=== PATIENT | male | born 1930 | race Caucasian/White ===

== ENCOUNTER → 2018-02-17 | Day surgery (SDC) | payer OTHER ==
[2017-12-29 07:59] VITALS: Ht 157.5 cm; Wt 50.9 kg
[~2018-02-17] VITALS: Ht 157.5 cm; Wt 50.9 kg
[~2018-02-17] MED LIST: ATOR-24 PO; ATROPINE SULFATE 0.1 MG/ML 5ML SYR IV PRN; CYCLOPENTOLATE HCL 1% OP SOLN PER DROP CHARGE OPL SCH; EpHEDrine SULFATE INJ 50 MG/ML AMP IV PRN; EpINEphrine INJ 1MG/ML AMP 1 MG/ML AMP ONE; FENTANYL CITRATE INJ 50 MCG/1 ML 2 ML VIAL IV PRN; FERR1TAB13 PO; GATIFLOXACIN OP SOLN PER DROP CHARGE OPL SCH; GLIP2.5T11 PO; HYDR12.524 PO; KETOROLAC 0.5% OP SOLN PER DROP CHARGE OPL SCH; LACTATED RINGER'S 1000ML 500 ML IV SCH; LIDOCAINE 3.5% OPH GEL PER APPLICATION CHARGE ONE; LIDOCAINE HCL 1% MPF 2 ML VIAL ONE; OMEP40CA41 PO; ONDANSETRON INJ 2 MG/ML 2 ML VIAL IV PRN; PHENYLEPHRINE HCL 10% OP SOLN PER DROP CHARGE OPL SCH; PHENYLEPHRINE HCL 2.5% OP SOLN PER DROP CHARGE OPL SCH; POVIDONE-IODINE OP SOLN 30 ML BTL ONE; PROPARACAINE 0.5% OP SOLN PER DROP CHARGE OPL SCH; SODIUM CHLORIDE 0.9% 500ML IV SCH; TAMS0.4C38 PO; TOBRAMYCIN/DEXAMETHASONE OPH OINT PER APPLN CHARGE ONE; TROPICAMIDE 1% OP SOLN PER DROP CHARGE OPL SCH
[2018-02-17 10:06] VITALS: BP 163/69; PULSE 64; TEMP 36.9; O2SAT 95
== END | disposition home or self-care (01) ==
LOC: X.SURG 08:03
PROVIDERS: ATTEND Ophthalmology
DX: H26.9 Unspecified cataract (principal); I12.9 Hypertensive chronic kidney disease with stage 1 through stage 4 chronic kidney disease, or unspecified chronic kidney disease; K57.30 Diverticulosis of large intestine without perforation or abscess without bleeding; F70 Mild intellectual disabilities; K21.9 Gastro-esophageal reflux disease without esophagitis; N18.3 Chronic kidney disease, stage 3 (moderate); E11.22 Type 2 diabetes mellitus with diabetic chronic kidney disease; Z85.46 Personal history of malignant neoplasm of prostate; Z79.84 Long term (current) use of oral hypoglycemic drugs; Z79.899 Other long term (current) drug therapy; Z53.09 Procedure and treatment not carried out because of other contraindication

== ENCOUNTER → 2018-03-03 | Day surgery (SDC) | payer OTHER ==
[2018-02-19 10:30] VITALS: Ht 157.5 cm; Wt 50.9 kg
[~2018-03-03] VITALS: Ht 157.5 cm; Wt 50.9 kg
[~2018-03-03] MED LIST changes: +500ML BSS 0.3ML EPI 1:1000PF IRRIG ONE; +ACETAMINOPHEN 325 MG TAB PO PRN; +AMVISC PLUS 0.8ML SYRINGE INT OCU ONE; +BSS FLUSH ONE; -CYCLOPENTOLATE HCL 1% OP SOLN PER DROP CHARGE OPL SCH; -FENTANYL CITRATE INJ 50 MCG/1 ML 2 ML VIAL IV PRN; -GATIFLOXACIN OP SOLN PER DROP CHARGE OPL SCH; -KETOROLAC 0.5% OP SOLN PER DROP CHARGE OPL SCH; +MIDAZOLAM HCL 1 MG/ML 2ML VIAL ONE; +OCUCOAT 1 ML SOLN IO ONE; -ONDANSETRON INJ 2 MG/ML 2 ML VIAL IV PRN; -PHENYLEPHRINE HCL 2.5% OP SOLN PER DROP CHARGE OPL SCH; -SODIUM CHLORIDE 0.9% 500ML IV SCH; -TROPICAMIDE 1% OP SOLN PER DROP CHARGE OPL SCH
[2018-03-03] MEDS: PHENYLEPHRINE HCL 2.5% OP SOLN PER DROP CHARGE OPL SCH ×2 (13:09→13:18)
[2018-03-03] MEDS: TROPICAMIDE 1% OP SOLN PER DROP CHARGE OPL SCH ×2 (13:12→13:19)
[2018-03-03] MEDS: CYCLOPENTOLATE HCL 1% OP SOLN PER DROP CHARGE OPL SCH ×2 (13:13→13:20)
[2018-03-03] MEDS: KETOROLAC 0.5% OP SOLN PER DROP CHARGE OPL SCH ×2 (13:15→13:21)
[2018-03-03] MEDS: GATIFLOXACIN OP SOLN PER DROP CHARGE OPL SCH ×2 (13:17→13:22)
--- NOTE | 2018-03-03 13:35 | History & Physical Bridge - [place] ---
H&P Re-Evaluation Bridge Note: I have examined the patient, reviewed the History & Physical and in the interval since the performance of the History & Physical I have noted the following changes of clinical significance: Diagnosis: Left Cataract Procedure: Left Cataract Removal with Lens Implant No changes noted
--- NOTE | 2018-03-03 14:10 | [facility] Operative Report ---
Operative Report Date of Service Mar 03, 2018. Operative Report 1. PREOPERATIVE DIAGNOSIS: Cataract of the left eye. 2. POSTOPERATIVE DIAGNOSIS: Same. 3. PROCEDURE: Phacoemulsification with intraocular lens implantation of the left eye. SURGEON: Dr. Ted Delgado. ANESTHESIA: Topical Lidocaine gel, 1% Non- Preserved intracameral Lidocaine, and monitored intravenous sedation. INDICATIONS FOR THE PROCEDURE: The patient is a 87 - year-old male with a history of cataract of the left eye causing significant visual impairment. The details of the proposed procedure were explained to the patient who asked appropriate questions and following discussion of all risks, benefits and alternatives agreed to have the procedure done. The patient had a know history of taking of flomax and therefore plans were made preoperatively to use a pupil stabilization device. 4. OPERATION AND FINDINGS: DESCRIPTION OF PROCEDURE: After informed consent was obtained, the patient was brought to the Operating Room at the [facility]. The patient was placed in a supine position and then the left eye was prepped and draped in the usual sterile fashion for intraocular surgery. A drop of topical Lidocaine gel was placed in the operative eye. A wire lid speculum was then placed in the fornices. A corneal paracentesis was then created temporally. The Non-Preserved Lidocaine was then instilled into the anterior chamber. The anterior chamber was then pressurized with viscoelastic. A malyugin ring was inserted to dilate and stabilize the pupil. A 2.0 mm clear corneal incision was then created temporally. A cystotome was inserted into the anterior chamber and used to create a tear in the anterior lens capsule. This capsular tear was then used to create a small flap and the flap was dragged in a counterclockwise direction in order to create a continuous curvilinear capsulorrhexis. Hydrodissection was accomplished with balanced salt solution. Phacoemulsification of the lens nucleus was then performed in a standard divide- and-conquer technique. The phaco time was 20 seconds with an average power of 9 %. The remaining cortical material was removed using irrigation aspiration. The capsular bag was then filled with viscoelastic. A B[employer]ch [employer] Lomb MI60L + 22.5 diopters lens was then loaded into the injector and injected into the capsular bag. The malyugin ring was removed. The remaining viscoelastic was removed with the irrigation aspiration handpiece. The wound was hydrated and then checked and found to be watertight. The intraocular pressure was checked and found to be adequate. The wire lid speculum was removed and the patient's face was cleaned and dried. TobraDex ointment was placed in the inferior fornix. The patient was discharged to the Recovery Room having tolerated the procedure well. There were no complications. The patient will be seen tomorrow in the office for follow-up. I attest to the content of the Intraoperative Record and any orders documented therein. Any exceptions are noted below.
--- NOTE | 2018-03-03 14:11 | Discharge Instructions-SurgCtr ---
Discharge Instructions Date of Service Mar 03, 2018. Visit Reason for Visit: Cataract Left Eye Discharge Discharge Diagnosis / Problem: cataract Discharge Goals Goal(s): Improve function Activity Recommendations Activity Limitations: per Instructions/Follow-up section Anesthesia . Post Anesthesia Instructions: If you have had General Anesthesia or IV Sedation: * Do not drive today. * Resume driving when surgeon permits. * Do not make important decisions or sign legal documents today. * Call surgeon for: 1. Temperature elevations greater than 101 degrees F. 2. Uncontrollable pain. 3. Excessive bleeding. 4. Persistent nausea and vomiting. 5. Medication intolerance (nausea, vomiting or rash). * For nausea and vomiting use only clear liquids such as: tea, soda, bouillon until nausea subsides, then gradually increase diet as tolerated. * If you have any concerns or questions, call your surgeon's office. If physician is unavailable and it is an emergency, call 911 or go to the nearest emergency room. . Diet Recommendations Home Diet: resume previous diet Procedures Procedures Performed: Left Cataract Phacoemulsification With Intraocular Lens Implant Pending Studies Studies pending at discharge: no Medical Emergencies . Who to Call and When: Medical Emergencies: If at any time you feel your situation is an emergency, please call 911 immediately. . Non-Emergent Contact Non-Emergency issues call your: Screening Representative . . "Provider Documentation" section prepared by Ted Delgado. .
[2018-03-03 14:12] VITALS: TEMP 36.8
--- NOTE | 2018-03-03 14:22 | Anesthesia Progress Nt - [facility] ---
Anesthesia Post Op Note Date & Time Mar 03, 2018 at 14:21 Vital Signs Pain Intensity: 0 Vital Signs Past 12 Hours Date Time Temp Pulse Resp B/P (MAP) Pulse Ox O2 Delivery O2 Flow Rate FiO2 03/03/18 14:12 36.8 65 16 170/75 (106) 95 Room Air 03/03/18 12:58 36.5 67 20 170/75 (106) 96 Room Air Notes Mental Status: alert / awake / arousable, participated in evaluation Pt Amnestic to Procedure: Yes Nausea / Vomiting: adequately controlled Pain: adequately controlled Airway Patency, RR, SpO2: stable & adequate BP & HR: stable & adequate Hydration State: stable & adequate Anesthetic Complications: no major complications apparent
[2018-03-03 14:40] VITALS: BP 173/72; PULSE 62; O2SAT 98
== END | disposition home or self-care (01) ==
LOC: X.SURG 11:59
PROVIDERS: ATTEND Ophthalmology
DX: H26.8 Other specified cataract (principal); E11.22 Type 2 diabetes mellitus with diabetic chronic kidney disease; I12.9 Hypertensive chronic kidney disease with stage 1 through stage 4 chronic kidney disease, or unspecified chronic kidney disease; K21.9 Gastro-esophageal reflux disease without esophagitis; F70 Mild intellectual disabilities; F17.221 Nicotine dependence, chewing tobacco, in remission; N18.3 Chronic kidney disease, stage 3 (moderate); Z79.4 Long term (current) use of insulin; Z79.899 Other long term (current) drug therapy; Z80.0 Family history of malignant neoplasm of digestive organs; Z85.46 Personal history of malignant neoplasm of prostate; Z82.49 Family history of ischemic heart disease and other diseases of the circulatory system; Z83.2 Family history of diseases of the blood and blood-forming organs and certain disorders involving the immune mechanism

== ENCOUNTER → 2018-03-31 | Day surgery (SDC) | payer OTHER ==
[2018-03-18 13:16] VITALS: Ht 157.5 cm; Wt 50.9 kg
[~2018-03-31] VITALS: Ht 157.5 cm; Wt 50.9 kg
[~2018-03-31] MED LIST changes: -PHENYLEPHRINE HCL 10% OP SOLN PER DROP CHARGE OPL SCH; +PHENYLEPHRINE HCL 10% OP SOLN PER DROP CHARGE OPR SCH; -PROPARACAINE 0.5% OP SOLN PER DROP CHARGE OPL SCH; +PROPARACAINE 0.5% OP SOLN PER DROP CHARGE OPR SCH
[2018-03-31] MEDS: PHENYLEPHRINE HCL 2.5% OP SOLN PER DROP CHARGE OPR SCH ×2 (08:19→08:26)
[2018-03-31] MEDS: TROPICAMIDE 1% OP SOLN PER DROP CHARGE OPR SCH ×2 (08:20→08:27)
[2018-03-31] MEDS: CYCLOPENTOLATE HCL 1% OP SOLN PER DROP CHARGE OPR SCH ×2 (08:21→08:28)
[2018-03-31] MEDS: KETOROLAC 0.5% OP SOLN PER DROP CHARGE OPR SCH ×2 (08:22→08:29)
[2018-03-31] MEDS: GATIFLOXACIN OP SOLN PER DROP CHARGE OPR SCH ×2 (08:23→08:33)
--- NOTE | 2018-03-31 08:42 | History & Physical Bridge - [place] ---
H&P Re-Evaluation Bridge Note: I have examined the patient, reviewed the History & Physical and in the interval since the performance of the History & Physical I have noted the following changes of clinical significance: No changes noted
--- NOTE | 2018-03-31 09:37 | [facility] Operative Report ---
Operative Report Date of Service March 31, 2018. Operative Report 1. PREOPERATIVE DIAGNOSIS: Cataract of the right eye. 2. POSTOPERATIVE DIAGNOSIS: Same. 3. PROCEDURE: Phacoemulsification with intraocular lens implantation of the right eye. SURGEON: Dr. Ted Delgado. ANESTHESIA: Topical Lidocaine gel, 1% Non- Preserved intracameral Lidocaine, and monitored intravenous sedation. INDICATIONS FOR THE PROCEDURE: The patient is a 87 - year-old male with a history of cataract of the right eye causing significant visual impairment. The details of the proposed procedure were explained to the patient who asked appropriate questions and following discussion of all risks, benefits and alternatives agreed to have the procedure done. The patient dilated poorly and therefore plans were made preoperatively to use a pupil dilating device. 4. OPERATION AND FINDINGS: DESCRIPTION OF PROCEDURE: After informed consent was obtained, the patient was brought to the Operating Room at the [facility]. The patient was placed in a supine position and then the right eye was prepped and draped in the usual sterile fashion for intraocular surgery. A drop of topical Lidocaine gel was placed in the operative eye. A wire lid speculum was then placed in the fornices. A corneal paracentesis was then created temporally. The Non-Preserved Lidocaine was then instilled into the anterior chamber. The anterior chamber was then pressurized with viscoelastic. A 2.0 mm clear corneal incision was then created temporally. A malyugin ring was inserted to dilate and stabilize the pupil. A cystotome was inserted into the anterior chamber and used to create a tear in the anterior lens capsule. This capsular tear was then used to create a small flap and the flap was dragged in a counterclockwise direction in order to create a continuous curvilinear capsulorrhexis. Hydrodissection was accomplished with balanced salt solution. Phacoemulsification of the lens nucleus was then performed in a standard divide- and-conquer technique. The phaco time was 26 seconds with an average power of 13 %. The remaining cortical material was removed using irrigation aspiration. The capsular bag was then filled with viscoelastic. A Bausch [employer] Lomb MI60L + 21.0 diopters lens was then loaded into the injector and injected into the capsular bag. The remaining viscoelastic was removed with the irrigation aspiration handpiece. The wound was hydrated and then checked and found to be watertight. The intraocular pressure was checked and found to be adequate. The wire lid speculum was removed and the patient's face was cleaned and dried. TobraDex ointment was placed in the inferior fornix. The patient was discharged to the Recovery Room having tolerated the procedure well. There were no complications. The patient will be seen tomorrow in the office for follow-up. I attest to the content of the Intraoperative Record and any orders documented therein. Any exceptions are noted below.
--- NOTE | 2018-03-31 09:38 | Discharge Instructions-SurgCtr ---
Discharge Instructions Date of Service March 31, 2018. Visit Reason for Visit: Cataract Right Eye Discharge Discharge Diagnosis / Problem: cataract Discharge Goals Goal(s): Improve function Activity Recommendations Activity Limitations: per Instructions/Follow-up section Anesthesia . Post Anesthesia Instructions: If you have had General Anesthesia or IV Sedation: * Do not drive today. * Resume driving when surgeon permits. * Do not make important decisions or sign legal documents today. * Call surgeon for: 1. Temperature elevations greater than 101 degrees F. 2. Uncontrollable pain. 3. Excessive bleeding. 4. Persistent nausea and vomiting. 5. Medication intolerance (nausea, vomiting or rash). * For nausea and vomiting use only clear liquids such as: tea, soda, bouillon until nausea subsides, then gradually increase diet as tolerated. * If you have any concerns or questions, call your surgeon's office. If physician is unavailable and it is an emergency, call 911 or go to the nearest emergency room. . Diet Recommendations Home Diet: resume previous diet Procedures Procedures Performed: Right Cataract Phacoemulsification With Intraocular Lens Implant Pending Studies Studies pending at discharge: no Medical Emergencies . Who to Call and When: Medical Emergencies: If at any time you feel your situation is an emergency, please call 911 immediately. . Non-Emergent Contact Non-Emergency issues call your: Reel Hooker . . "Provider Documentation" section prepared by Ted Delgado. .
[2018-03-31 09:41] VITALS: TEMP 36.4
[2018-03-31 10:02] VITALS: BP 171/67; PULSE 56; O2SAT 98
--- NOTE | 2018-03-31 10:02 | Anesthesia Progress Nt - [facility] ---
Anesthesia Post Op Note Date & Time March 31, 2018 at 10:01 Vital Signs Pain Intensity: 0 Vital Signs Past 12 Hours Date Time Temp Pulse Resp B/P (MAP) Pulse Ox O2 Delivery O2 Flow Rate FiO2 03/31/18 09:41 36.4 55 16 162/69 (100) 98 Room Air 03/31/18 08:05 36.6 57 18 169/75 (106) 98 Room Air Notes Mental Status: alert / awake / arousable, participated in evaluation Pt Amnestic to Procedure: Yes Nausea / Vomiting: adequately controlled Pain: adequately controlled Airway Patency, RR, SpO2: stable & adequate BP & HR: stable & adequate Hydration State: stable & adequate Anesthetic Complications: no major complications apparent
== END | disposition home or self-care (01) ==
LOC: X.SURG 07:20
PROVIDERS: ATTEND Ophthalmology
DX: H26.9 Unspecified cataract (principal); I10 Essential (primary) hypertension; K21.9 Gastro-esophageal reflux disease without esophagitis; E11.9 Type 2 diabetes mellitus without complications; N28.9 Disorder of kidney and ureter, unspecified